=== PATIENT | female | born 1965 | race Caucasian/White ===

== ENCOUNTER 2023-07-12 07:13 | Outpatient (CLI) | payer BC | END 2023-07-12 07:14 | disposition home or self-care (01) | LOC: BICULT 07:13 | PROVIDERS: ATTEND Nurse Practitioner Family | DX: N63.15 Unspecified lump in the right breast, overlapping quadrants (principal); N63.11 Unspecified lump in the right breast, upper outer quadrant | CPT/HCPCS: 19083; 19084 ==

== ENCOUNTER 2023-09-03 07:29 | Day surgery (SDC) | payer BC ==
[2023-08-30 11:54] VITALS: BMI 31.9
[2023-09-03] MEDS ORDERED: Acetaminophen 500 MG TAB ONE (09:47)
[2023-09-03] MEDS ORDERED: Ketorolac Tromethamine 30 MG (1 mL) VIAL ONE (09:47)
[2023-09-03] MEDS ORDERED: Lidocaine 2% PF 5 ML VIAL ONE (11:37)
[2023-09-03] MEDS ORDERED: EPINEPHrine 1 MG/ML VIAL ONE (11:37)
[2023-09-03] MEDS ORDERED: Bupivacaine 0.25% HCL 30 ML VIAL ONE ×2 (11:37→13:01)
[2023-09-03] MEDS ORDERED: Isosulfan Blue 50 MG/5 ML VIAL ONE (11:37)
[2023-09-03] MEDS ORDERED: Ondansetron PF 4 MG/2 ML Vial ONE ×2 (11:47→14:47)
[2023-09-03] MEDS ORDERED: Midazolam HCl 2 mg/2 ml Vial ONE (11:47)
[2023-09-03] MEDS ORDERED: fentaNYL 50 mcg/mL 1 mL Vial ONE ×2 (11:47→13:10)
[2023-09-03] MEDS ORDERED: Dexamethasone 4 mg/ml Vial ONE (11:47)
[2023-09-03] MEDS ORDERED: Sodium Chloride 0.9% 100 ML ONE (11:47)
[2023-09-03] MEDS ORDERED: PROPOFOL 20 ML ONE (11:47)
[2023-09-03] MEDS ORDERED: Lidocaine 1% PF 5 ML VIAL ONE (11:47)
[2023-09-03] MEDS ORDERED: CEFAZOLIN 2 GM VIAL ONE (11:47)
[2023-09-03] MEDS ORDERED: ePHEDrine Sulfate 50 MG/10 ML VIAL ONE (12:58)
== END 2023-09-03 15:55 | disposition home or self-care (01) ==
LOC: SDC 07:29
PROVIDERS: ATTEND Specialist
PROC: 0HB5XZX Excision of Chest Skin, External Approach, Diagnostic (ICD-10-PCS; principal; 2023-09-03)
PROC: 0HBT0ZZ Excision of Right Breast, Open Approach (ICD-10-PCS; principal; 2023-09-03)
DX: C50.411 Malignant neoplasm of upper-outer quadrant of right female breast (principal); D05.01 Lobular carcinoma in situ of right breast
CPT/HCPCS: 76098; 78195; 88307; 88342; A9541; C1713; J0171; J0665; J1100; J1885; J2001; J2250; J2405; J2704; J3010; J3490; Q9968

== ENCOUNTER 2023-09-20 12:06 | Day surgery (SDC) | payer BC ==
[2023-09-19 10:18] VITALS: BMI 31.9
[2023-09-20] MEDS ORDERED: Ketorolac Tromethamine 30 MG (1 mL) VIAL ONE ×2 (12:40→14:00)
[2023-09-20] MEDS ORDERED: Sodium Chloride 0.9% 100 ML ONE (12:41)
[2023-09-20] MEDS ORDERED: CEFAZOLIN 2 GM VIAL ONE (12:41)
[2023-09-20] MEDS ORDERED: Acetaminophen 500 MG TAB ONE (12:41)
[2023-09-20] MEDS ORDERED: EPINEPHrine 1 MG/ML VIAL ONE (13:12)
[2023-09-20] MEDS ORDERED: Bupivacaine 0.25% HCL 30 ML VIAL ONE (13:12)
[2023-09-20] MEDS ORDERED: PROPOFOL 20 ML ONE (13:46)
[2023-09-20] MEDS ORDERED: fentaNYL PF 100 MCG/2 ML SYRINGE ONE (13:46)
[2023-09-20] MEDS ORDERED: Lidocaine 1% PF 5 ML VIAL ONE (13:48)
[2023-09-20] MEDS ORDERED: Ondansetron PF 4 MG/2 ML Vial ONE ×2 (14:00→15:12)
[2023-09-20] MEDS ORDERED: Dexamethasone 20 MG/5 ML VIAL ONE (14:00)
[2023-09-20] MEDS ORDERED: ePHEDrine Sulfate 50 MG/10 ML VIAL ONE (14:10)
== END 2023-09-20 17:15 | disposition home or self-care (01) ==
LOC: SDC 12:06
PROVIDERS: ATTEND Specialist
PROC: 0HBT0ZZ Excision of Right Breast, Open Approach (ICD-10-PCS; principal; 2023-09-20)
DX: C50.911 Malignant neoplasm of unspecified site of right female breast (principal); E11.9 Type 2 diabetes mellitus without complications; I10 Essential (primary) hypertension; Z79.84 Long term (current) use of oral hypoglycemic drugs; Z79.899 Other long term (current) drug therapy; Z90.89 Acquired absence of other organs
CPT/HCPCS: 88307; 88342; J0171; J0665; J1100; J1885; J2405; J2704; J3490

== ENCOUNTER 2024-09-17 18:06 | Emergency (ER) | payer BC ==
[2024-09-17] MEDS ORDERED: Ketorolac Tromethamine 30 MG (1 mL) VIAL ONE (19:01)
[2024-09-17 19:06] LABS: ALT (SGPT) 38 U/L (Less than 34); AST (SGOT) 41 U/L (11-34); Albumin 3.9 g/dL (3.1-4.5); Alkaline Phosphatase 71 U/L (40-110); Anion Gap 14 mmol/L (10-20); BUN (Urea Nitrogen) 16 mg/dL (9.8-20.1); Bilirubin, Total 0.3 mg/dL (0.3-1.2); Calc. Creatinine Clearance 0 mL/min (70-130); Calcium 9.2 mg/dL (7.8-10.44); Carbon Dioxide 24 mmol/L (22-29); Chloride 108 mmol/L (98-107); Estimated GFR 58; Globulin 3.4 g/dL (2.4-3.5); Glucose 95 mg/dL (70-105); Lipase 22 U/L (8-78); Magnesium 2.2 mg/dL (1.6-2.6); Potassium 3.9 mmol/L (3.5-5.1); Protein, Total 7.3 g/dL (6.0-8.3); Sodium 142 mmol/L (136-145)
[2024-09-17] MEDS ORDERED: Morphine 2 MG/ML VIAL ONE (19:29)
[2024-09-17] MEDS ORDERED: Ondansetron PF 4 MG/2 ML Vial ONE (19:36)
[2024-09-17 19:48] LABS: #Basophils 0.07 10x3/uL (0.0-0.2); %Basophils 0.7 % (0.0-1.0); %Lymphocytes 17.6 % (21.0-51.0); %Monocytes 6.6 % (0.0-10.0); %Neutrophils 70.8 % (42.0-75.0); Hematocrit 34.6 % (36.0-47.0); Mean Corpuscular HGB CONC 34.7 g/dL (32.0-36.0); Mean Corpuscular Hemoglobin 30.2 pg (27.0-31.0); Mean Corpuscular Volume 87.2 fL (78.0-98.0); Mean Platelet Volume 10.9 fL (7.4-10.4); Platelet Count 225 10x3/uL (130-400); Red Blood Cell (RBC) Count 3.97 mill/uL (4.20-5.40)
[2024-09-17 20:02] LABS: Bacteria/HPF None Seen HPF (None Seen); Bilirubin Negative (Negative); Blood, Urine 2+ (Negative); CAUTI Indications for Culture < 2yrs of age; Clarity Clear (Clear); Glucose, Urine (Dipstick) Normal (Negative); Ketone, Urine Negative (Negative); Leukocyte Negative Leu/uL (Negative); Nitrite Negative (Negative); Protein, Urine (Dipstick) Negative (Neg-Trace); Specific Gravity, Urine 1.004 (1.002-1.036); Squamous Epithelial 0-3 HPF (0-3); Urobilinogen Normal mg/dL (Less than 2); WBC/HPF 0-3 HPF (0-3); pH, Urine 6.5 (5.0-9.0)
[2024-09-17 20:14] LABS: Urine Culture Reflex Yes Yes
[2024-09-17 20:17] LABS: Hypochromia SLIGHT = 6-15 cells HPF (0-5); Platelet Adequacy Comment Platelets Normal; Polychromasia SLIGHT = 2-3 cells HPF (0-2); Stomatocytes SLIGHT = 2-5 cells HPF (0-1)
[2024-09-17 21:40] LABS: Chlamydia by PCR, Vaginal Swab Not Detected (NotDetected); GC by PCR, Vaginal Swab Not Detected (NotDetected)
== END 2024-09-17 22:04 | disposition home or self-care (01) ==
LOC: ERS 18:06
DX: N84.1 Polyp of cervix uteri (principal); I10 Essential (primary) hypertension; E11.9 Type 2 diabetes mellitus without complications; E03.9 Hypothyroidism, unspecified; Z79.84 Long term (current) use of oral hypoglycemic drugs; Z79.899 Other long term (current) drug therapy; Z85.3 Personal history of malignant neoplasm of breast
CPT/HCPCS: 76856; 80053; 81001; 83605; 83690; 83735; 85025; 87086; 87480; 87491; 87510; 87591; 87660; 96374; 96375; J1885; J2272; J2405